=== PATIENT | female | born 1980 | race Caucasian/White ===

== ENCOUNTER 2020-08-28 08:25 | Day surgery (SDC) | payer OTHER ==
[2020-08-21 12:39] VITALS: BMI 34.7
[2020-08-28] MEDS ORDERED: LIDOCAINE HCL/PF 2% SDV 5ML VIAL ONE (08:49)
[2020-08-28] MEDS ORDERED: PROPOFOL 20 ML ONE ×3 (08:50)
[2020-08-28 08:57] VITALS: TEMP 97.7
[2020-08-28 10:25] VITALS: BP 107/70; PULSE 84
== END 2020-08-28 10:25 | disposition home or self-care (01) ==
LOC: FASU-ENDO 08:25
PROVIDERS: ATTEND Internal Medicine Gastroenterology
PROC: 0DB68ZX Excision of Stomach, Via Natural or Artificial Opening Endoscopic, Diagnostic (ICD-10-PCS; 2020-08-28)
PROC: 0DB48ZX Excision of Esophagogastric Junction, Via Natural or Artificial Opening Endoscopic, Diagnostic (ICD-10-PCS; 2020-08-28)
PROC: 0DB98ZX Excision of Duodenum, Via Natural or Artificial Opening Endoscopic, Diagnostic (ICD-10-PCS; principal; 2020-08-28 09:35)
DX: K29.80 Duodenitis without bleeding (principal); K29.50 Unspecified chronic gastritis without bleeding; R10.13 Epigastric pain
CPT/HCPCS: 84703; 88305-TC; 88342-TC